=== PATIENT | male | born 1945 | race Caucasian/White ===

== ENCOUNTER 2018-06-23 09:45 | Outpatient (CLI) | payer MEDICARE, OTHER ==
[2018-06-23 18:32] LABS: THYROID STIMULATING HORMONE 4.75 uIU/mL (0.34-5.60)
[2018-06-23 18:34] LABS: FREE T4 (FREE THYROXINE) 1.65 ng/dL (0.58-1.64)
== END 2018-06-23 09:46 | disposition home or self-care (01) ==
LOC: LAB.F 09:45
PROVIDERS: ATTEND Internal Medicine Endocrinology, Diabetes & Metabolism
DX: E27.49 Other adrenocortical insufficiency (principal)
CPT/HCPCS: 36415; 82024; 82533; 84439; 84443; 84481

== ENCOUNTER 2018-08-27 16:00 | Outpatient (CLI) | payer MEDICARE, OTHER ==
--- NOTE | 2018-08-27 19:11 | CONSULTATION NOTE ---
Palliative Care Consultation - Referral Referring Provider: Dr. 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 Patient has continued to decline both functionally, with severe weight loss, increasing severe pain, and esophageal spasms. He has been referred to hospice, but had requested to meet with palliative care, as I am familiar with him and his family secondary to caring for his mother who is of advanced age. Patient was initially treated with FOLFOX and Herceptin, and then with CAPOX with Herceptin lfor HER/2 positive disease. Patient has not had radiation or surgery, he was on maintenance capecitabine and Herceptin for some period of time. He has had ejection fraction did below 50% so Herceptin was held. He was enrolled in a second line trial of pembrolizumab and margetuximab. He did have 11 cycles of investigational therapy with a tremendous clinical response per oncology with improvement in weight gain and swallowing. He did develop hypothyroidism and adrenal insufficiency, was originally placed on hydrocortisone, most recently on Decadron. He was taken off of study, this is when he did third line therapy of irinotecan and mitomycin. His last chemotherapy was administered on 07/12/2018. His last CT scan, on 07/25/2018 showed in his chest Multiple patchy groundglass, semisolid and mixed opacities scattered in his right lung, mild to moderate in amount. Increased mediastinal periaortic/retrocrural enlarged lymph nodes, and stable moderate severe distal esophageal circumferential wall thickening. His abdominal pelvis CT scan shows mixed response to the daisy mets with decreased in the gastrohepatic/jim-celiac bulking confluent adenopathy as well as increase in mild retroperitoneal adenopathy. Increase in peritoneal carcinomatosis with increasing small ascites and multiple peritoneal masses. His liver actually showed stable appearance, and is stable chronic venous thrombosis of the left portal vein. Patient given the fact he is no longer a therapy candidate, has explored alternative treatments, including ketogenic diet, and hyperbaric oxygen chamber, he has received 1 treatment. As well as instructions of "sugar "feeding the cancer, and looking at a Metformin topical compounded lotion. Unfortunately they have discontinued his Decadron abruptly, and patient is quite dehydrated today, as was told not to have any more sugar. He has done better with his nutritional shakes without sugar, as well as looking at another supplement "Weakley coffee" that includes high fats and proteins and is coffee based. Patient today presents quite cachectic, weak, moderately dehydrated. Poor activity tolerance, increased shortness of breath, wheelchair-bound. He does present with a PPS of 50%, Increased dysphagia. He does report his pain is much better controlled on the methadone at 2.5 bid, and is using the tramadol for breakthrough pain. Patient's goals are to "last" through the end of September, and to Shannon 09/07. Though they are prepared to move this up recognizing he is on a quick decline. Palliative care meeting with him in the home setting, have a established good rapport the last several months, as have been coming to home for his mother. Patient aware of his decline, though is somewhat distressed at the thought of hospice. Medical/Surgical History - Past Medical History Cardiovascular: reports: Hypertension Respiratory: reports: Shortness of breath Neuro: reports: Peripheral neuropathy (chemotherapy induced), Other (rls) Endocrine/Autoimmune: reports: HyPOthyroidism, Other (adrenal insufficiency) GI: reports: Other (liver mets; recurrent inguinal hernia) : reports: Benign prostate hypertrophy ("fixed" with irinotecan; had been on meds for BPH previously) Psych: reports: Depression, Anxiety MRSA Hx?: No - Past Surgical History General: reports: Colonoscopy, Other (hernia surgery) Ortho: reports: Other (right knee meniscus) HEENT: reports: Tonsil/Adenoidectomy - Substance History Use: Uses substance without health or social issues: Tobacco (hx of smoking 40 years), Alcohol (yes) Social History - Living Situation Living arrangement: At home Living Situation: With spouse/s.o. Support System: Patient and his S0 of several decades, Shannon, lived together at his sister's home in [place]. They are the caregivers for his mother who is 100 years old, and doing poorly as well. She is close to transitioning to hospice. Shannon and time of decided to get , have all the legal paperwork in place, at this point of setting a date of 09/07 but are willing and able to move it up if they can find someone to do the ceremony if needed as indicated by his condition. Family History - Family History Family History: Mother: Alive and Well (mother if FTT and 100), CAD, CVA/TIA, Hypertension, PVD/PAD, Father: , [place] (father 72 heart attach), Sister: Alive and Well Medications/Allergies - Medications Home Medications: Ambulatory Orders Medication Instructions Recorded Confirmed Acetaminophen 500 mg PO Q4HR PRN MDD 4000 mg 08/28/18 08/28/18 Dexamethasone 4 mg PO DAILY MDD taper 3 days; 2 08/28/18 08/28/18 mg 3days Domperidone 10 mg PO TID PRN MDD esophageal 08/28/18 Levothyroxine Sodium [Synthroid] 137 mcg PO DAILY 08/28/18 08/28/18 Methadone 2.5 mg PO BID 08/28/18 08/28/18 Morphine Sulfate [Morphine Sulf 5 - 10 mg PO .Q2 PRN 08/28/18 08/28/18 Oral (Roxanol)] Nystatin 5 ml PO BID 08/28/18 08/28/18 Polyethylene Glycol 3350 [Miralax] 17 gm PO DAILY 08/28/18 08/28/18 Sennosides [Senna Lax] 1 - 2 tab PO BID PRN 08/28/18 08/28/18 Tramadol HCl 50 - 100 mg PO Q4HR PRN MDD 400 mg 08/28/18 08/28/18 Review of Systems - Constitutional Constitutional: reports: Fatigue, Weakness, Poor appetite, Night sweats, Weight loss - Ears, Nose & Throat Ears, Nose & Throat: reports: Dry mouth - Cardiovascular Cardiovascular: reports: Lightheadedness, Exertional dyspnea, Decr. exercise tolerance - Respiratory Respiratory: reports: SOB at rest, SOB with exertion - Gastrointestinal Gastrointestinal: reports: Poor appetite - Musculoskeletal Musculoskeletal: reports: Muscle weakness, Joint pain (right knee), Transfer issues (functional decline; using wheelchair today) - Integumentary Integumentary: reports: Dryness - Neurological Neurological: reports: General weakness - Psychiatric Psychiatric: reports: Depression, Anxiety - Endocrine Endocrine: reports: Hypothyroidism - Hematologic/Lymphatic Hematologic/Lymphatic: denies: Recurrent infections - All Other Systems All Other Systems: reports: Reviewed and negative Physical Exam - Vital Signs Temperature: 97.3 C Pulse Rate: 83 Respiratory Rate: 18 O2 Saturation: 97 (ra @ rest; reports has been down to 83% on stairs) Blood Pressure: 90/48 - Physical Exam General Appearance: positive: Mild distress, Cachetic Eyes Bilateral: positive: Normal inspection ENT: positive: Dry mucous membranes Neck: positive: No JVD, Trachea midline Cardiovascular: positive: Regular rate & rhythm Respiratory: positive: Diminished in bases. negative: Wheezes, Rales, Rhonchi Abdomen: positive: Tenderness Skin: positive: Dryness, Bruising Extremities: positive: No pedal edema Neurologic/Psychiatric: positive: Oriented x3, Mood/affect nml, Weakness, Flat affect Palliative Care - POLST Patient has POLST: Yes POLST Status: DNR, Comfort Measures Pain: Pain worsening, Location (Pain is mostly abdominal and in the stomach, has improved overall with methadone 2.5 mg twice daily, is needing the tramadol 100 mg with Tylenol less often, he does get severe spasms at the end of his esophagus, that involved belching and severe discomfort. Has just like the hydromorphone secondary makes him feel "stupid", dislikes feeling out of control. He does report currently sleeping well, does display intermittent pain behaviors with difficulty swallowing and esophageal spasms.) Tiredness/Fatigue: Severe (7-10) Drowsiness/Sedation: Moderate (4-6) Nausea: Mild (1-3) Depression: Mild (1-3) Anxiety: Moderate (4-6) Dyspnea: Moderate (4-6) Anorexia: Weight loss Sleep: Sleeps well Constipation: Yes, Opoid induced, Intermittent constipation Feelings of wellbeing/Perceived Quality of Life: Poor, Worsening Performance Status: Patient appears quite cachectic and frail, has had rapid functional decline over this last week. Unable to ambulate long distances, secondary to dyspnea, patient and Shannon live on lower floor, has been having difficulty managing the stairs. He remains quite resistant to acknowledging his increasing limitations. He is in the wheelchair today, long extensive conversation regarding patient no longer safe relief were forays into town. - Palliative Care Discussion: Patient does understand at this point in time there is no further treatment, is feeling somewhat distressed related to the idea there is nothing more to do. But you just let go and . He does not feel hospitalization, or further intervention is appropriate. He is hoping for a easy transition, and would like to stay as conscious as possible. We did discuss though given the severity of his pain, diagnosis, managing balancing sedation and pain relief will be challenging. Patient does want to be comfortable. He has been quite resistant to "giving in". He is quite thankful currently he has found a way to get his shakes down again, as he is lost 15 pounds in 2 weeks. His hope and intention is to last until at least the end of September, his plan is to Shannon on 09/07 though they are prepared to move that up if he deteriorates more quickly. They had met with an alternative practitioner, and are looking at supplements, diet changes, and hyperbaric oxygen treatment. I did express my worry, that the severe limitations put on him, now have resulted in dehydration. Did discuss at length, my recommendation to proceed with hospice referral, Shannon is going to need support, and patient most likely is going to decline fairly rapidly. That we can certainly hope for the best, he is showing signs of rapid deterioration. Patient has received most of his [facility] at [facility], do have good rapport with patient as have been seeing his mother. Is somewhat resistant to new care team. Is a provider regarding the hospice benefit, need for 24/11 support, and particularly given patient's diagnosis and ongoing rapid decline. Counseling provided regarding palliative care versus hospice, agreed in the context of barriers for transition, to be his attending for hospice team recognizing we would partner with Dr. Castellano the hospice medical review coordinator. This was acceptable, and did agreed to hospice referral as soon as available.Patient most likely depending on his functional status, to continue with exploring alternative treatments, aware the hospice benefit would not for support around this, but would certainly support him in his goals. She does have a POLST, with DNA R, and comfort measures. Patient does not have D POA set up, does have formed with Shannon Dalton his primary and Tanisha Ishmael his sister as back-up. Will be seeing friends this weekend requested they have this witnessed and completed for hospice admit. 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 Patient has completed not only chemotherapy, immunotherapy, and clinical trials and has continued to progress. His original diagnosis was 2015. Patient is currently pursuing alternative treatment support, recent initiation of methadone with better pain control, but continues to be quite cachectic and with significant functional decline. Palliative care meeting with patient and significant other Shannon, to define goals of care, and facilitate transition to hospice. Recommendations/Counseling Done: 1. Pain of neoplastic origin. Patient started on methadone 2.5 mg twice daily on 08/23. Does feel currently he is doing fairly well on this. He is using tramadol 100 mg with Tylenol for breakthrough pain, has needed this less, anywhere from 1-3 times a day. He is quite satisfied with his current regimen. We did discuss in the context of use of breakthrough pain medicine, if he is pushing 3 or 4 doses in 24 hours, next step would be to increase the methadone to 2.5 mg 3 times daily they do verbalize understanding.Patient has disliked the use of hydromorphone, as it made him feel "stupid in the head". We did discuss in the context of pain control, finding that balance. I did provide a prescription for acute severe pain or dyspnea, of morphine 20 mg/ml with 5 to 10 mg every 2 hours as needed severe pain or distress. They will pick this up to have as a tool in her toolbox. Reassured patient we can use the methadone through his end of life, and also comes in liquid formulation if continues to have increased difficulty with swallowing. 2. Adrenal insufficiency. Patient's alternative practitioner had him stop his Decadron, as it was "feeding the cancer". Patient to be taking fairly consistently 8 mg a day, suspect this is contributing to his severe fatigue. Discussed at a minimum we need to titrate him off, instructed to take 4 mg daily for 3 days, then continue to decrease to 2 mg. Will revisit though the face of his records do reveal he has adrenal insufficiency may do better to continue. Will revisit with check in call Thursday. 3. Constipation. This is been a barrier of him being consistent with his pain management. Patient is having some slowing/constipation. Instructed to initiate MiraLAX daily, for the "mush", and senna 1-2 tabs daily for the "push". And to titrate accordingly. Patient is to take 2 senna every 4-6 hours until bowels move, if patient without bowel movement continuing, to take 2 senna every 4-6 hours until BM. 4. Dehydration. Patient does present with symptoms of dehydration, patient's usual baseline fluid intake is complicated at best secondary to his dysphasia. 1 of the things he can get down is Pepsi, and this is when of the things they took away with his new diet restrictions. We did discuss in the context of "feeding his cancer" vs dehydration, more concerned he get adequate fluid intake, and is contributing currently to his weakness, acknowledged my concerns, and will resume fluids and shakes to push to 6-8 glasses fluid/day. 5. Generalized weakness. Wheelchair-bound today, limited both by generalized weakness, dehydration, breathlessness, and ongoing cachexia and weight loss. Will order wheelchair from hospice for patient use, did strongly recommend patient relocate to main floor, aiming much in agreement with this, as she is afraid of his falling and he does get quite breathless and hypoxic with ambulation. At this point in time he remains resistant, but is willing to have me order hospital bed, oxygen, and support for ongoing functional decline. Did recommend patient not go into [facility] on Thursday, given his current decline in function today. 6. Advanced care planning. Patient does have POLST in place, copy of this is sent to the hospice team. Recommend get the DPOA for Shannon signed as soon as possible over the weekend. Discussed options for moving up wed, search advertising strategist may be available. Patient's sister is coming back from [place], will be available over the next couple weeks to support with caregiving. Shannon presents with significant caregiver fatigue, taking care of both Richard and his mother. Supportive listening regarding alternative treatment, again weighing benefits and burdens. His goals are to have a comfortable respectful and conscious if possible in the home setting. But would like to have a few more weeks to complete end of life tasks. Counseling provided regarding hospice benefit, barriers to transition, will continue to support patient and as low as attending for hospice. The understanding is will partner with hospice medical review coordinator, for 24-hour/ coverage. Hospice to admit Thursday; equipment needed: Hospital bed, wheelchair, bathing bench, commode, over the bed table, Oxygen concentrator. Time Spent: 90 minutes with greater than 50% of the standing counseling regarding goals of care, initiation of hospice, pain and symptom management and anticipatory guidance
== END 2018-08-27 16:01 | disposition home or self-care (01) ==
LOC: PC 16:00
PROVIDERS: ATTEND Nurse Practitioner Adult Health
DX: Z51.5 Encounter for palliative care (principal); G89.3 Neoplasm related pain (acute) (chronic); C16.9 Malignant neoplasm of stomach, unspecified; C78.7 Secondary malignant neoplasm of liver and intrahepatic bile duct; C77.9 Secondary and unspecified malignant neoplasm of lymph node, unspecified; E03.9 Hypothyroidism, unspecified; E27.40 Unspecified adrenocortical insufficiency; K59.03 Drug induced constipation; T40.605A Adverse effect of unspecified narcotics, initial encounter; E86.0 Dehydration; R13.10 Dysphagia, unspecified; R53.1 Weakness; R63.4 Abnormal weight loss; G70.1 Toxic myoneural disorders; T45.1X5D Adverse effect of antineoplastic and immunosuppressive drugs, subsequent encounter; N40.0 Benign prostatic hyperplasia without lower urinary tract symptoms; F32.9 Major depressive disorder, single episode, unspecified; F41.9 Anxiety disorder, unspecified; Z66 Do not resuscitate; Z99.3 Dependence on wheelchair; Z79.891 Long term (current) use of opiate analgesic; Z79.899 Other long term (current) drug therapy; Z87.891 Personal history of nicotine dependence
CPT/HCPCS: 99345